=== PATIENT | male | born 2000 | race Caucasian/White ===

== ENCOUNTER 2023-12-27 19:24 | Emergency (ER) | payer SELFPAY ==
[2023-12-27] MEDS ORDERED: KETOROLAC 30 MG/ML INJ ONE (21:06)
[2023-12-27] MEDS ORDERED: NA CHLORIDE 0.9% 1,000 ML ONE (21:06)
[2023-12-27 21:13] LABS: Absolute Eosinophils 0.3 K/uL (0-0.5); Absolute Lymphocytes (CBC) 1.9 K/uL (0.7-4.9); Absolute Monocytes 0.6 K/uL (0.1-1.3); Absolute Neutrophil 4.3 K/uL (1.8-8.0); Basophils % 0.7 % (0-1.3); Eosinophils % 4.1 % (0-4.4); Hemoglobin 16.1 g/dL (13.6-17.9); Lymphocytes % 26.7 % (15.3-44.8); MCHC 34.3 g/dL (32.0-36.0); MCV 90.3 fL (80-100); MPV 9.5 fL (7.6-11.3); Monocytes % 8.8 % (3.3-12.3); Neutrophils % 59.7 % (41.7-73.7); Nucleated RBC Absolute Count 0.2 (0-0); Nucleated Red Blood Cells % 2.8 % (0-0); Platelets 206 thou/uL (152-406); RBC Red Blood Cell Count 5.21 M/uL (4.33-5.43); Red Cell Distribution Width 13.2 % (12.1-15.2)
[2023-12-27 21:27] LABS: Albumin 3.9 g/dL (3.4-5.0); Albumin/Globulin Ratio 1.1 (1.1-1.8); Anion Gap 7.3 mEq/L (5.0-15.0); Bilirubin Total 0.8 mg/dL (0.2-1.0); Globulin 3.6 g/dL (2.3-3.5); Potassium 4.3 mEq/L (3.5-5.1); Protein, Total 7.5 g/dL (6.4-8.2)
--- NOTE | 2023-12-27 21:47 | RAD REPORT ---
EXAMINATION: CT ABDOMEN AND PELVIS WITH CONTRAST CLINICAL INDICATION: Male, 23 years old. Abdominal pain TECHNIQUE: CT abdomen and pelvis was performed, after the administration of IV contrast, as per [facility] protocol. Axial, sagittal and coronal reconstructions were obtained. One or more of the following dose reduction techniques were used: Automated exposure control, adjustment of the mA and/o r kV according to patient size, and/or iterative reconstruction. Unless otherwise specified, incidental findings do not require dedicated imaging follow-up. [id number]. COMPARISON: No prior exam. FINDINGS: LOWER CHEST: The visualized lung bases are clear. LIVER: Normal in size and contour. No focal lesion. Possible hepatic steatosis. GALLBLADDER/BILE DUCT: No biliary ductal dilatation. ? PANCREAS: No mass, ductal dilation, or ashlee-pancreatic fluid. SPLEEN: Normal size. No focal lesion. ADRENALS: Normal; no mass. KIDNEYS AND URETERS: Normal size and contour. No hydronephrosis. Subcentimeter low-density left renal lesion which is too small to characterize, statistically benign. URINARY BLADDER: Normal contour. GASTROINTESTINAL TRACT: Stomach is non-dilated. Small bowel has normal course and caliber. No colonic wall thickening or pericolonic inflammatory changes. PERITONEUM: No ascites. LYMPH NODES: No lymphadenopathy. ABDOMINAL AORTA AND OTHER VESSELS: Normal caliber aorta and IVC. REPRODUCTIVE ORGANS: No pathologic process MUSCULOSKELETAL: No acute or suspicious osseous abnormality. ADDITIONAL FINDINGS: None. IMPRESSION: No acute or significant abnormalities seen in the abdomen or pelvis. Normal appendix.
[2023-12-27 21:58] LABS: Differential Total Cells Count 100; Eosinophils 4 % (0-3); Lymphocytes 33 % (15-42); Monocytes 2 % (0-10); Segmented Neutrophils 61 % (40-80)
[2023-12-27 21:59] LABS: Blood Morphology Comment NOT SEEN (NOT SEEN); Platelet Estimate ADEQ
--- NOTE | 2023-12-27 22:55 | ER ---
Nurse's Notes [facility] Name: Pj Anders III Age: 23 yrs Sex: Male : 2000 Arrival Date: 12/27/2023 Time: 19:24 Bed 18 Private MD: Diagnosis: Abdominal pain, unspecified;Diarrhea, unspecified Presentation: 12/26 19:54 Chief complaint: Patient states: Pt states having stomach pain x2 days with diarrhea. dd2 Denies vomiting. Coronavirus screen: At this time, the client does not indicate any symptoms associated with coronavirus-19. Ebola Screen: No symptoms or risks identified at this time. Initial Sepsis Screen: Does the patient meet any 2 criteria? No. Patient's initial sepsis screen is negative. Does the patient have a suspected source of infection? No. Patient's initial sepsis screen is negative. Risk Assessment: Do you want to hurt yourself or someone else? Patient reports no desire to harm self or others. Onset of symptoms was December 25, 2023. 19:54 Method Of Arrival: Ambulatory dd2 19:54 Acuity: KAREN 3 dd2 Triage Assessment: 19:57 General: Appears in no apparent distress. Behavior is calm, cooperative, appropriate dd2 for age. Pain: Complains of pain in right lower quadrant and left lower quadrant Pain currently is 2 out of 10 on a pain scale. GI: Abdomen is tender to palpation in right lower quadrant and left lower quadrant Reports lower abdominal pain, cramping, diarrhea. Historical: - Allergies: 19:57 No Known Allergies; dd2 - PMHx: 19:57 None; dd2 - PSHx: 19:57 None; dd2 - Immunization history:: Adult Immunizations up to date. - Infectious Disease History:: Denies. - Social history:: Smoking status: Reported history of juuling and/or vaping. Screenin:15 [facility] ED Fall Risk Assessment (Adult) History of falling in the last 3 months, ar6 including since admission No falls in past 3 months (0 pts) Confusion or Disorientation No (0 pts) Intoxicated or Sedated No (0 pts) Impaired Gait No (0 pts) Mobility Assist Device Used No (0 pt) Altered Elimination No (0 pt) Score/Fall Risk Level 0 - 2 = Low Risk. [facility] ED Fall Risk Assessment (Adult) Score/Fall Risk Level 0 - 2 = Low Risk Oriented to surroundings, Maintained a safe environment, Educated pt \T\ family on fall prevention, incl call for assistance when getting out of bed, Hourly rounding (assess needs \T\ fall precautionary measures) done. Abuse screen: Denies threats or abuse. Denies injuries from another. Nutritional screening: No deficits noted. Tuberculosis screening: No symptoms or risk factors identified. Assessment: 21:15 General: Appears in no apparent distress. comfortable, Behavior is calm, cooperative, ar6 appropriate for age. Pain: Complains of pain in abdomen Pain currently is 1 out of 10 on a pain scale. Neuro: Level of Consciousness is awake, alert, obeys commands, Oriented to person, place, time, situation. Cardiovascular: Capillary refill < 3 seconds. Respiratory: Airway is patent. GI: Abdomen is flat, non-distended, Bowel sounds present X 4 quads. Reports nausea. GI: Abd is soft X 4 quads Abdomen is tender to palpation in umbilical area and suprapubic area. : No signs and/or symptoms were reported regarding the genitourinary system. EENT: Oral mucosa is moist. Derm: Skin is intact, is healthy with good turgor, Skin is dry, Skin is pink, warm \T\ dry. Musculoskeletal: No signs and/or symptoms reported regarding the musculoskeletal system. Vital Signs: 19:54 BP 103 / 75; Pulse 87; Resp 16; Temp 98.4(O); Pulse Ox 100% ; Weight 74.84 kg; dd2 21:15 BP 116 / 72; Pulse 77; Resp 18; Pulse Ox 99% on R/A; ar6 22:00 BP 122 / 74; Pulse 82; Resp 17; Pulse Ox 100% on R/A; ar6 22:44 BP 116 / 68; Pulse 72; Resp 16; Pulse Ox 100% on R/A; ar6 23:11 BP 118 / 66; Pulse 67; Resp 18; Pulse Ox 99% on R/A; ar6 ED Course: 19:26 Patient arrived in ED. jj6 19:32 Barrett Carnes PA is PHCP. cp 19:32 Barrett Gardner MD is Attending Physician. cp 19:57 Triage completed. dd2 19:57 Arm band placed on left wrist. Patient notified of wait time. dd2 20:41 Alicia Schneider, RN is Primary Nurse. ar6 21:04 CBC with Diff Sent. ar6 21:04 CMP Sent. ar6 21:04 Lipase Sent. ar6 21:15 No apparent distress. Awaiting lab results, Awaiting CT Scan. ar6 21:15 Patient has correct armband on for positive identification. Placed in gown. Bed in low ar6 position. Call light in reach. Side rails up X 1. Provided Education on: plan of care. Pulse ox on. NIBP on. Door closed. Noise minimized. Lights dimmed. Warm blanket given. Head of bed lowered. 21:15 No provider procedures requiring assistance completed. Inserted saline lock: 20 gauge ar6 in right antecubital area, using aseptic technique. Blood collected. Flushed with 10 mL NS. 21:25 CMP Sent. ar6 21:25 Lipase Sent. ar6 21:36 CT Abd/Pelvis - IV Contrast Only In Process Unspecified. EDMS 23:11 IV discontinued, intact, bleeding controlled, No redness/swelling at site. Pressure ar6 dressing applied. Administered Medications: 21:25 Drug: TORadol - Ketorolac IVP 15 mg IVP once Route: IVP; Site: left antecubital; ar6 23:18 Follow up: Response: No adverse reaction ar6 21:26 Drug: NS 0.9% IV 1000 ml IV at 1 bolus Per protocol; 1000 mL bolus Route: IV; Rate: 1 ar6 bolus; Site: left antecubital; 23:18 Follow up: Response: No adverse reaction; IV Status: Completed infusion; IV Intake: ar6 1000ml Medication: 21:15 VIS not applicable for this client. ar6 Intake: 23:18 IV: 1000ml; Total: 1000ml. ar6 Outcome: 22:55 Discharge ordered by . cp 23:11 Discharged to home ambulatory, with family, ar6 23:11 Condition: good 23:11 Discharge instructions given to patient, family, Instructed on discharge instructions, follow up and referral plans. Demonstrated understanding of instructions, follow-up care, 23:18 Patient left the ED. ar6 Signatures: Dispatcher [employer] EDMS Barrett Carnes PA PA cp Jeffries, Jennifer jj6 Alicia Schneider RN RN ar6 SUSANNA ROBLES RN RN dd2
--- NOTE | 2023-12-27 22:56 | EDPHYS ---
Physician Documentation [facility] Name: Pj Anders III Age: 23 yrs Sex: Male : 2000 Arrival Date: 12/27/2023 Time: 19:24 Bed 18 Private MD: ED Physician Barrett Gardner HPI: 12/26 21:00 This 23 yrs old Male presents to ER via Ambulatory with complaints of Abdominal Pain. cp 21:00 The patient presents with abdominal pain. Onset: The symptoms/episode began/occurred 2 cp day(s) ago. Associated signs and symptoms: Pertinent positives: diarrhea, nausea, Pertinent negatives: fever, vomiting. Severity of pain: in the emergency department the pain is unchanged despite home interventions. Historical: - Allergies: 19:57 No Known Allergies; dd2 - PMHx: :57 None; dd2 - PSHx: :57 None; dd2 - Immunization history:: Adult Immunizations up to date. - Infectious Disease History:: Denies. - Social history:: Smoking status: Reported history of juuling and/or vaping. ROS: 21:05 Constitutional: Negative for body aches, chills, fever, poor PO intake, cp 21:05 Eyes: Negative for injury, pain, redness, and discharge, cp 21:05 ENT: Negative for drainage from ear(s), ear pain, sore throat, difficulty swallowing, difficulty handling secretions, 21:05 Respiratory: Negative for cough, shortness of breath, wheezing, 21:05 Abdomen/GI: Positive for abdominal pain, nausea, diarrhea, Negative for vomiting, constipation, 21:05 : Negative for urinary symptoms, testicular pain 21:05 All other systems are negative, Exam: 21:10 Constitutional: The patient appears in no acute distress, alert, awake, non-toxic, well cp developed, well nourished, 21:10 Head/Face: Normocephalic, atraumatic. cp 21:10 Eyes: Periorbital structures: appear normal, Conjunctiva: normal, no exudate, no injection, Sclera: no appreciated abnormality, Lids and lashes: appear normal, bilaterally, 21:10 ENT: External ear(s): are unremarkable, Nose: is normal, Mouth: Lips: moist, Oral mucosa: moist, Posterior pharynx: Airway: no evidence of obstruction, patent, 21:10 Chest/axilla: Inspection: normal, 21:10 Cardiovascular: Rate: normal, Rhythm: regular, 21:10 Respiratory: the patient does not display signs of respiratory distress, Respirations: normal, no use of accessory muscles, no retractions, labored breathing, is not present, Breath sounds: are clear throughout, no decreased breath sounds, no stridor, no wheezing, 21:10 Abdomen/GI: Inspection: abdomen appears normal, Bowel sounds: active, all quadrants, Palpation: soft, in all quadrants, mild abdominal tenderness, in all quadrants, rebound tenderness, is not appreciated, involuntary guarding, is not appreciated, 21:10 Back: pain, is absent, ROM is normal, 21:10 Neuro: Orientation: to person, place \T\ time. Mentation: is normal, Vital Signs: 19:54 BP 103 / 75; Pulse 87; Resp 16; Temp 98.4(O); Pulse Ox 100% ; Weight 74.84 kg; dd2 21:15 BP 116 / 72; Pulse 77; Resp 18; Pulse Ox 99% on R/A; ar6 22:00 BP 122 / 74; Pulse 82; Resp 17; Pulse Ox 100% on R/A; ar6 22:44 BP 116 / 68; Pulse 72; Resp 16; Pulse Ox 100% on R/A; ar6 23:11 BP 118 / 66; Pulse 67; Resp 18; Pulse Ox 99% on R/A; ar6 MDM: 20:06 Patient medically screened. yoan 21:00 Differential diagnosis: appendicitis, cholecystitis, Cholelithiasis, gastritis, cp non-specific abd pain, Pyelonephritis, Ureterolithiasis, urinary tract infection. 22:55 Data reviewed: vital signs, nurses notes, lab test result(s), radiologic studies, CT cp scan, and as a result, I will discharge patient. 22:55 Counseling: I had a detailed discussion with the patient and/or guardian regarding the cp historical points, exam findings, and any diagnostic results supporting the discharge/admit diagnosis, lab results, radiology results, to return to the emergency department if symptoms worsen or persist or if there are any questions or concerns that arise at home. Special discussion: Based on the patient's Hx, exam, and Dx evaluation, there is no indication for emergent surgery or inpatient Tx. It is understood by the patient/guardian that if the Sx's persist or worsen they need to return immediately for re-evaluation. 12/26 20:52 Order name: CBC with Diff; Complete Time: 22:47 cp 12/26 20:52 Order name: CMP; Complete Time: 22:47 cp 12/26 22:48 Interpretation: Normal except: AST 11; GLOB 3.6. cp 12/26 20:52 Order name: Lipase; Complete Time: 22:47 cp 12/26 21:15 Order name: Manual Differential; Complete Time: 22:47 EDMS 12/26 22:48 Interpretation: Normal except: EOS 4. cp 12/26 20:52 Order name: CT Abd/Pelvis - IV Contrast Only; Complete Time: 22:47 cp 12/26 22:49 Interpretation: Report reviewed. 12/26 20:52 Order name: IV Saline Lock; Complete Time: 21:04 cp 12/26 20:52 Order name: Labs collected and sent; Complete Time: 21:04 cp Administered Medications: 21:25 Drug: TORadol - Ketorolac IVP 15 mg IVP once Route: IVP; Site: left antecubital; ar6 23:18 Follow up: Response: No adverse reaction ar6 21:26 Drug: NS 0.9% IV 1000 ml IV at 1 bolus Per protocol; 1000 mL bolus Route: IV; Rate: 1 ar6 bolus; Site: left antecubital; 23:18 Follow up: Response: No adverse reaction; IV Status: Completed infusion; IV Intake: ar6 1000ml Disposition: 12/27 15:59 Co-signature as Attending Physician, Barrett Gardner MD I agree with the assessment and yoan plan of care. Disposition Summary: 12/27/23 22:55 Discharge Ordered Notes: Location: Home cp Problem: new cp Symptoms: have improved cp Condition: Stable cp Diagnosis - Abdominal pain, unspecified cp - Diarrhea, unspecified cp Followup: cp - With: Private Physician - When: 2 - 3 days - Reason: Worsening of condition Discharge Instructions: - Discharge Summary Sheet cp - Abdominal Pain, Adult cp - Food Choices to Help Relieve Diarrhea, Adult cp - Diarrhea, Adult cp Forms: - Medication Reconciliation Form cp - Antibiotic Education cp - Prescription Opioid Use cp - Patient Portal Instructions cp - Leadership Thank You Letter cp - Work release form ar6 Signatures: Dispatcher [employer] EDBarrett Hodges MD MD cha Page, Corey, PA PA cp Roberts, Amber RN RN ar6 SUSANNA ROBLES RN RN dd2 Corrections: (The following items were deleted from the chart) 12/26 20:52 20:52 Abdomen Pelvis W Con+CT.RAD.BRZ ordered. EDMS EDMS
[2023-12-27 23:40] VITALS: TEMP 98.4
[2023-12-27 23:47] VITALS: BP 118/66; O2SAT 99
== END 2023-12-27 23:18 | disposition home or self-care (01) ==
LOC: ER 19:24
DX: R10.9 Unspecified abdominal pain (principal); R19.7 Diarrhea, unspecified
CPT/HCPCS: 36415; 74177; 80053; 83690; 85025; 96361; 96374; 99284; J7030; Q9967